=== PATIENT | male | born 1940 | race Caucasian/White ===

== ENCOUNTER → 2024-07-11 10:08 | Outpatient (REF) | payer MEDICARE, SELFPAY ==
[2024-07-11 12:37] LABS: % Basophils 0.9 % (0-2); % Eosinophils 3.6 % (0-6); % Immature Granulocytes 0.4 % (0-0.5); % Lymphocytes 18.8 % (20.5-51.1); % Monocytes 10.3 % (1.7-9.3); Absolute Basophils 0.1 10^3/uL (0-0.2); Absolute Eosinophils 0.2 10^3/uL (0-0.7); Absolute Lymphocytes 1.1 10^3/uL (1.2-3.4); Absolute Monocytes 0.6 10^3/uL (0.1-0.6); Absolute Neutrophils 3.7 10^3/uL (1.4-6.5); Hematocrit 38.4 % (39.0-52.0); Hemoglobin 12.5 g/dL (13.0-18.0); Mean Corp Hgb Conc. 32.6 g/dL (33.0-37.0); Mean Corpuscular Hgb 30.5 pg (27.0-31.0); Mean Corpuscular Volume 93.7 fL (80.0-94.0); Mean Platelet Volume 10.6 fL (7.4-10.4); Nucleated Red Blood Cells % 0 % (-); Platelet Count 223 10^3/uL (130-400); Red Cell Dist. Width 13.5 % (11.5-14.5); White Blood Cell Count 5.6 10^3/uL (4.8-10.8)
[2024-07-11 13:28] LABS: ALT (SGPT) 20 U/L (0-50); AST (SGOT) 28 U/L (17-59); Albumin 3.9 g/dl (3.5-5.0); Alkaline Phosphatase 81 U/L (38-126); Blood Urea Nitrogen 24 mg/dl (9-20); Carbon Dioxide 29 mmol/L (22-30); Chloride 100 mmol/L (98-107); Glucose 95 mg/dl (70-99); HDL Cholesterol 53 mg/dl; LDL Cholesterol, Calculated 65 mg/dl; Potassium 4.6 mmol/L (3.5-5.1); Sodium 138 mmol/L (135-145); Total Bilirubin 0.8 mg/dl (0.2-1.3); Total Cholesterol 136 mg/dl (50-199); Total Protein 6.6 g/dl (6.3-8.2); Triglyceride 94 mg/dl (10-149); Very Low Density Lipoprotein 18 mg/dl (0-30); eGFR > 60.00
[2024-07-11 13:36] LABS: Free T4 1.08 ng/dl (0.78-2.19)
[2024-07-11 13:50] LABS: TSH 2.85 uIU/ml (0.47-4.68)
== END ==
LOC: OLABPV 10:08
PROVIDERS: ATTENDING PHYSICIAN Family Medicine
DX: E78.2 Mixed hyperlipidemia (principal); E03.9 Hypothyroidism, unspecified; D64.9 Anemia, unspecified
CPT/HCPCS: 36415; 80053; 80061; 84439; 84443; 85025

== ENCOUNTER → 2024-08-15 10:02 | Outpatient (REF) | payer MEDICARE, SELFPAY | LOC: RCS 10:02 | PROVIDERS: ATTENDING PHYSICIAN Student in an Organized Health Care Education/Training Program; FAMILY PHYSICIAN Family Medicine | DX: I71.21 Aneurysm of the ascending aorta, without rupture (principal); I25.10 Atherosclerotic heart disease of native coronary artery without angina pectoris | CPT/HCPCS: 93306 ==

== ENCOUNTER → 2025-01-12 09:51 | Outpatient (REF) | payer MEDICARE, SELFPAY ==
[2025-01-12 10:41] LABS: Hematocrit 36.2 % (39.0-52.0); Hemoglobin 11.8 g/dL (13.0-18.0); Mean Corp Hgb Conc. 32.6 g/dL (33.0-37.0); Mean Corpuscular Volume 92.1 fL (80.0-94.0); Nucleated Red Blood Cells % 0 % (-); Platelet Count 224 10^3/uL (130-400); Red Cell Dist. Width 13.2 % (11.5-14.5)
[2025-01-12 10:48] LABS: ALT (SGPT) 17 U/L (0-50); AST (SGOT) 23 U/L (17-59); Albumin 3.7 g/dl (3.5-5.0); Alkaline Phosphatase 72 U/L (38-126); Blood Urea Nitrogen 21 mg/dl (9-20); Calcium 9.4 mg/dl (8.4-10.2); Carbon Dioxide 27 mmol/L (22-30); Chloride 108 mmol/L (98-107); Glucose 87 mg/dl (70-99); HDL Cholesterol 48 mg/dl; LDL Cholesterol, Calculated 58 mg/dl; Potassium 4.9 mmol/L (3.5-5.1); Sodium 138 mmol/L (135-145); Total Protein 6.4 g/dl (6.3-8.2); Very Low Density Lipoprotein 16 mg/dl (0-30); eGFR > 60.00
[2025-01-12 11:16] LABS: TSH 2.89 uIU/ml (0.47-4.68)
== END ==
LOC: OLABPV 09:51
PROVIDERS: ATTENDING PHYSICIAN Family Medicine
DX: E78.2 Mixed hyperlipidemia (principal); E03.9 Hypothyroidism, unspecified; D64.9 Anemia, unspecified
CPT/HCPCS: 36415; 80053; 80061; 84439; 84443; 85025

== ENCOUNTER → 2025-02-13 12:10 | Outpatient (REF) | payer MEDICARE, SELFPAY ==
[2025-02-13 13:03] LABS: PSA, Total - Diagnostic < 0.06 ng/ml (0.0-4.0)
== END ==
LOC: OLABPV 12:10
PROVIDERS: ATTENDING PHYSICIAN Specialist
DX: C61 Malignant neoplasm of prostate (principal)
CPT/HCPCS: 36415; 84153

== ENCOUNTER 2025-05-30 06:35 | Outpatient (RCR) | payer MEDICARE, SELFPAY | END 2025-05-30 23:59 | disposition home or self-care (01) | LOC: RPT 06:35 | PROVIDERS: ATTENDING PHYSICIAN Family Medicine | DX: R42 Dizziness and giddiness (principal); R26.81 Unsteadiness on feet; Z73.6 Limitation of activities due to disability; G62.9 Polyneuropathy, unspecified | CPT/HCPCS: 97110; 97162 ==

== ENCOUNTER 2025-06-05 14:48 | Inpatient (IN) | payer MEDICARE, SELFPAY ==
[2025-06-05 12:04] VITALS: BP 123/78
[2025-06-05 12:57] LABS: COVID-19 Antigen Negative (Negative)
[2025-06-05 12:58] LABS: ALT (SGPT) 21 U/L (0-50); AST (SGOT) 34 U/L (17-59); Albumin 3.7 g/dl (3.5-5.0); Alkaline Phosphatase 98 U/L (38-126); Blood Urea Nitrogen 16 mg/dl (9-20); Calcium 8.6 mg/dl (8.4-10.2); Carbon Dioxide 24 mmol/L (22-30); Chloride 96 mmol/L (98-107); Glucose 103 mg/dl (70-99); Potassium 4.5 mmol/L (3.5-5.1); Sodium 126 mmol/L (135-145); Total Protein 6.5 g/dl (6.3-8.2); eGFR > 60.00
[2025-06-05 13:08] VITALS: BMI 28.7
[2025-06-05] MEDS: TYLENOL 650 MG PO (13:13)
--- NOTE | 2025-06-05 13:47 | ED.GENMED ---
History of Present Illness
General
Chief Complaint: Cold/Flu/URI Symptoms
Source: patient
Exam Limitations: none
Time Seen by Provider: 06/05/25 12:56
Nursing documentation reviewed up to this point in time: agreed with
History of Present Illness
History of Present Illness:
Patient presents to ED secondary to persistent cough, shortness of breath, decreased appetite and generalized weakness over the past 1 week. Patient's spouse currently has similar symptoms and tested positive for COVID-19, 2 days ago. Patient
reports fever of 101 at home this morning. Patient did not take any Tylenol or Motrin prior to arrival. Denies chest pain. Denies nausea, vomiting, or diarrhea. Denies rash. Denies headache. Denies dizziness. Denies recent travel. Denies
recent change in medications or diet. Patient does report having received the flu vaccination this year.
Past History
Past History
ED Past Medical History: CAD, Cancer (Prostate), HTN, Hypercholesterolemia, AL and Hypothyroidism
ED Past Surgical History: Appendectomy, Cardiac (History of cardiac catheterization with multiple stents X 8, CABG), Orthopedic (Wrist surgery) and Other (History of hernia surgery, and cataract surgery in 2003)
Social History
Tobacco: Former smoker
Alcohol: Occasional
Personal:
Living: with family
Employment: Retired
Review of Systems
Review of Systems
Allergies reviewed?: Yes
All Other Systems: ROS reviewed and negative except as documented in HPI and ROS
Constitutional: Reports chills
EENT: Reports no symptoms
Respiratory: Reports cough and trouble breathing
Cardiac: Reports no symptoms; Denies chest pain
ABD/GI: Reports no symptoms; Denies vomiting or diarrhea
Musculoskeletal: Reports no symptoms
Skin: Reports no symptoms; Denies rash
Neurological: Reports weakness
Phy Exam
Physical Exam
Physical Exam:
Physical Exam
General: mild distress, not acutely ill. afebrile
Head: nc/at. eomi
Neck: supple. normal range of motion.
Heart: s1/s2 regular rate and rhythm
Lungs: mild respiratory distress. crackles bilaterally
Abdomen: normal bowel sounds. not tender.
Neuro: alert and oriented x 3. no focal neurological deficits
Skin: no rash
Psychiatric: well kept. interactive and cooperative
Extremities: no edema. no calf tenderness.
Course
Orders/Labs/Results
Orders:
Orders
06/05/25 Breakfast
Regular
At Your Request: Full Participation
06/05/25 12:19
COVID-19 Antigen Urgent
Source: Nasal Swab
Comprehensive Metabolic Panel Urgent
Serum Osmolality Urgent
Comment: ADD ON
06/05/25 12:58
CR Chest - 2 Views Urgent
Comment:
Reason For Exam: cough/weakness
06/05/25 13:03
Legionella Urinary Antigen Urgent
ABDOUL Source: Urine
Specimen Description:
06/05/25 13:04
Add On- LAB Urgent
Tests Added?: serum osm
06/05/25 13:05
0.9% Sodium Chloride 500 ml [Nss] 500 ml IV BOLUS
Acetaminophen [Tylenol] 650 mg PO NOW STA
06/05/25 13:15
Lactate Level [Lactic Acid] Urgent
06/05/25 13:16
Complete Blood Count/With Diff Urgent
Blood Culture Q30M
ABDOUL Source: Blood/Venous
Specimen Description:
Blood Culture Q30M
ABDOUL Source: Blood/Venous
Specimen Description:
Influenza A+B Rapid Molecular Urgent
ABDOUL Source: Nasal Swab
Specimen Description:
Respiratory Syncytial Virus Urgent
ABDOUL Source: Nasal Swab
Specimen Description:
Date Specimen was Collected: 06/05/25
Time Specimen was Collected: 13:06
06/05/25 14:18
Admit/Transfer Patient As Directed
Co-Sign Provider:
Level of Care: Inpatient admission
Assign to:: Medical/Surgical
Physician / Group: loida holland
Diagnosis: hyponatremia
Reason for Hospitalization: hyponatermia
Expected length of stay greater than two midnights?: Yes
ELOS- Estimated Length of Stay in days: 3
I certify the patient meets the requirements for IP care: Yes
PRN Pain Medication Management As Directed
May give lesser potent ordered pain med per pt: Yes
preference::
Protocol:: Medication orders for pain may be administered in a
manner that supports deferring to patient preference
when the pt is:
- Requesting an ordered lesser potent pain medication.
Least to most potent pain medications are defined
as: acetaminophen < NSAID < tramadol < opioids
(morphine, oxycodone, hydromorphone).
- Requesting a lesser dose of the same medication IF
ORDERED.
- Requesting a less intrusive route of administration
if both routes are prescribed by the provider (PO <
IV).
06/05/25 14:19
Code Status As Directed
Resuscitation Status: Full Code
06/05/25 16:28
Acetaminophen [Tylenol] 650 mg PO Q4HPRN PRN
Bisacodyl [Dulcolax] 10 mg RECTAL [id number] PRN
Docusate W/Senna [Senokot-S] 1 tablet PO BIDPRN PRN
Ipratropium/Albuterol Sulfate [Duoneb] 3 ml INH R Q4HPRN PRN
Polyethylene Glycol Powder [Miralax] 17 grams PO DAILYPRN PRN
06/05/25 16:28
Sputum Culture [Respiratory Culture/Gram Stain] Routine
ABDOUL Source: Sputum
Specimen Description:
Activity As Directed
Activity Level: As Tolerated
Vital Signs As Directed
Frequency: Per unit guidelines
Ot Eval And Treat Routine
Pt Eval And Treat Routine
Activity Level: As Tolerated
DX Deep Vein Thrombosis Video Routine
06/05/25 17:47
BMP [Basic Metabolic Panel] Stat
06/05/25 18:00
Atorvastatin [Lipitor] 40 mg PO QPM
Enoxaparin Sodium [Lovenox] 40 mg SC QPM
06/05/25 20:00
Guaifenesin [Mucinex] 600 mg PO Q12
06/06/25 06:00
Basic Metabolic Panel IN AM
Complete Blood Count/No Diff IN AM
Levothyroxine [Synthroid] 50 mcg PO DAILY @ 0600
06/06/25 08:00
Aspirin Low Dose EC [Aspir Low (Enteric Coated)] 81 mg PO DAILY
Abnormal Lab Results
06/05/25 06/05/25
12:19 13:16
RBC 4.54 L 10^6/uL
(4.70-6.10)
Abs Immat Gran (auto) 0.1 H 10^3/uL
(0-0.05)
Absolute Neuts (auto) 9.1 H 10^3/uL
(1.4-6.5)
Absolute Lymphs (auto) 0.7 L 10^3/uL
(1.2-3.4)
Absolute Monos (auto) 0.8 H 10^3/uL
(0.1-0.6)
Immature Gran % 0.7 H %
(0-0.5)
Neutrophils % 85.1 H %
(42.2-75.2)
Lymphocytes % 6.3 L %
(20.5-51.1)
Sodium 126 L mmol/L
(135-145)
Chloride 96 L mmol/L
(98-107)
Glucose 103 H mg/dl
(70-99)
Serum Osmolality 273 L mOsm/kg
(275-300)
06/05/25 13:16
06/05/25 12:19
Vital Signs
Initial and Last Documented VS:
Initial Vital Signs
Temp Pulse Resp BP Pulse Ox
99.5 F 89 22 123/78 95
06/05/25 12:04 06/05/25 12:04 06/05/25 12:04 06/05/25 12:04 06/05/25 12:04
Last Documented Vital Signs
Temp Pulse Resp BP Pulse Ox
97.9 F 90 20 115/67 92
06/05/25 16:52 06/05/25 16:52 06/05/25 16:52 06/05/25 16:52 06/05/25 16:52
MDM/Problems Addressed
MDM/Problems Addressed:
History, exam, and blood work, along with chest x-ray consistent with likely viral illness with resulting hyponatremia from dehydration. Despite negative COVID-19 test in ED, it is quite possible that patient does not fact have COVID-19 infection,
explain his symptoms, especially in light of his spouse having tested +2 days ago. Patient will be admitted for further eval and treatment, including IV hydration.
Blood culture pending. Legionella antigen pending, as ordered secondary to hyponatremia.
Influnenza positive
*Pulse Oximetry
SaO2: 95
Oxygen Mode of Delivery: Room air
Patient hypoxic: no
*Critical Care Note
Total Time (30-74mins, 75-104mins- exclusive of procedures): Not Applicable
ED Attending Note
-
Portions of this chart may have been created with voice recognition software.� Occasional wrong word or��sound alike� substitutions may have occurred due to the inherent limitations of voice recognition software.
Discharge Plan
Departure
Patient Disposition: Admit
Date of Disposition: 06/05/25
Time of Disposition: 13:56
Admit to: Telemetry
Presentation/result/management discussed w/ accepting MD/DO: Hospitalist
Discharge Problem:
URI (upper respiratory infection), Acute hyponatremia, Weakness
Interventions
Interventions:
*Risk Screen - Suicide Last Done: 06/05/25 17:08
*General Assessment Last Done: 06/05/25 13:08
*Neglect/Abuse Screening Last Done: 06/05/25 13:08
*ED COVID-19 Vaccine History Last Done: 06/05/25 17:08
*ED Influenza Vaccine History Last Done: 06/05/25 13:08
[facility] Fall Risk Assessment Tool Last Done: 06/05/25 13:08
*Nursing Disposition Last Done: 06/05/25 16:34
ED- Cardiac Assessment Last Done: 06/05/25 13:08
ED- Neurological Assessment Last Done: 06/05/25 13:08
ED- Pulmonary Assessment Last Done: 06/05/25 13:08
Discharge Date and Time
Discharge Date/Time: 06/05/25 16:34
[2025-06-05 13:49] LABS: Hematocrit 39.1 % (39.0-52.0); Hemoglobin 13.2 g/dL (13.0-18.0); Mean Corp Hgb Conc. 33.8 g/dL (33.0-37.0); Mean Corpuscular Volume 86.1 fL (80.0-94.0); Nucleated Red Blood Cells % 0 % (-); Platelet Count 186 10^3/uL (130-400); Red Cell Dist. Width 13.7 % (11.5-14.5)
--- NOTE | 2025-06-05 13:58 | HPS.HSE ---
Family Physician
-
Family Physician:
Chief Complaint
-
Cough, short of breath, decreased appetite
History of Present Illness
84-year-old with past medical history for coronary artery disease, prostate cancer, hypertension, hypercholesteremia, [place], hypothyroidism presented to us with persistent cough, shortness of breath, decreased appetite and generalized weakness over the
past 1 week. patient stated cough with whitish sputum. he took cough medicine at home with no relief in symptoms. Patient denies any headache, dizzy or syncope. Patient stated he had a fever of 101 at home. Denies chest pain.denied abdominal
pain, nausea, vomiting or diarrhea. Patient denied dysuria hematuria.
patient's spouse currently has similar symptoms and tested positive for COVID-19, 2 days ago.
Upon arrival he was noted to have a sodium 126. Patient received a dose of Tylenol, normal saline in the ER. Urine osmolality, UA, urine sodium sent from ER Influenza, Legionella urine, RSV, blood culture sent from ER. Admitting for further
management
Medical History
Past Medical History
Past Medical History: Reports Other
Additional Past Medical History:
Bundle branch block, [place], hypothyroidism, prostate cancer, hyperlipidemia, bradycardia, neuropathy, hypertension, anemia, coronary artery disease, radiation cystitis, radiation proctitis
Past Surgical History: Reports Other
Additional Past Surgical History:
Coronary artery bypass graft x 3 vessels
Social History
Tobacco: Former Smoker
Alcohol: Occasional
Personal:
Living: With Family
Family History
Family History: Not pertinent
Allergies / Home Medications
Allergies reflects when Allergies were last updated in [employer].
Home Medications with original date entered in [employer]
Allergy/Medication List:
Allergies
Allergy/AdvReac Type Severity Reaction Status Date / Time
amoxicillin Allergy rash, Verified 06/20/21 10:49
blotchy
skin
oxycodone HCl (From Percocet) Allergy bad dreams Verified 06/20/21 10:49
Home Medications
aspirin 81 mg tablet,delayed release 81 mg PO DAILY 07/10/14
atorvastatin 40 mg tablet 40 mg PO QPM 07/10/14
levothyroxine 50 mcg tablet 50 mcg PO DAILY 07/10/14
ascorbic acid (vitamin C) 500 mg tablet (Vitamin C) 500 mg PO DAILY 12/19/19
cholecalciferol (vitamin D3) 25 mcg (1,000 unit) tablet 1,000 units PO DAILY 12/19/19
cyanocobalamin (vitamin B-12) 100 mcg tablet 100 mcg PO DAILY 12/19/19
Review of Systems
-
Constitutional: Reports Fever and Fatigue
EENT: Reports No Symptoms
Respiratory: Reports Cough and Trouble Breathing
Cardiac: Reports No Symptoms
Abdomen/GI: Reports No Symptoms
: Reports No Symptoms
Musculoskeletal: Reports No Symptoms
Skin: Reports No Symptoms
Neurological: Reports Weakness
Endocrine: Reports No Symptoms
Hematologic/Lymphatic: Reports No Symptoms
Psych: Reports No Symptoms
Physical Exam
Vital Signs
Vital Signs
Temp Pulse Resp BP Pulse Ox
99.5 F 89 22 123/78 95
06/05/25 12:04 06/05/25 12:04 06/05/25 12:04 06/05/25 12:04 06/05/25 13:54
Physical Exam
General: Well Developed, Well Nourished and No Apparent Distress
HEENT: NormoCephalic, Moist mucous membranes and Atraumatic
Respiratory: Clear
Cardiac: S1/S2 and Regular Rhythm; No Murmur or Rub
GI: Soft, Non Tender, Non Distended and Normal Bowel Sounds; No Organomegaly
Rectal: Deferred by Provider
Musculoskeletal: No Clubbing, No Cyanosis and No Edema
Skin: No Rash
Neuro: AO x 3 and Nonfocal/grossly intact
Psych: Calm
Laboratory Results
-
06/05/25 13:16
06/05/25 12:19
Laboratory Results
Lactic Acid 1.6 mmol/L (0.7-2.0) 06/05/25 13:15
Total Bilirubin 0.5 mg/dl (0.2-1.3) 06/05/25 12:19
AST 34 U/L (17-59) 06/05/25 12:19
ALT 21 U/L (0-50) 06/05/25 12:19
Alkaline Phosphatase 98 U/L (38-126) 06/05/25 12:19
Data Reviewed
-
Lab Data: Labs Reviewed by me
Impression/Plan
-
# Hyponatremia secondary to dehydration
- Fluids in ER
- Continue to monitor BMP
- Urine osmolality, urine sodium, UA pending
#Cough, short of breath secondary to influenza A
- COVID-negative
- Influenza and RSV pending
- Blood culture sent from ER
- Mucinex, nebs, Tylenol continued as needed
-initiated on TamiFlu
# Chronic bradycardia with a bundle-branch block
#CAD: No chest pain
- Aspirin continued
# Hyperlipidemia
- Atorvastatin continued
# Hypothyroidism
- Levothyroxine continue
# DVT prophylaxis
- Lovenox
# CODE STATUS
- Full code
[2025-06-05] MEDS: NSS 500 IV ×2 (14:03→20:11)
[2025-06-05 14:04] VITALS: BP 117/65
--- NOTE | 2025-06-05 14:18 | W.PN.UPDATE ---
Update Note
Progress Note Update
This note serves as an addendum to the H&P by private eye Kellydel Villarreal
HPI
84M Former smoker
PMHX: CAD, Cancer (Prostate), HTN, Hypercholesterolemia, NC and Hypothyroidism, HX CC/LHC with multiple stents X 8, CABG)
Seen at ED
- persistent cough, shortness of breath, decreased appetite and generalized weakness over the past 1 week.
- spouse currently has similar symptoms and tested positive for COVID-19, 2 days ago.
- fever of 101 at home this morning - did not take any Tylenol or Motrin prior to arrival.
Patient does report having received the flu vaccination this year.
Na 126 at ER s/p 1 L NS at ER
ROS:
- Denies chest pain.
- Denies nausea, vomiting, or diarrhea.
- Denies headache.
- Denies dizziness.
- Denies recent travel.
Relevant VS
Temp Pulse Resp BP Pulse Ox
99.5 F 77 16 117/65 93
06/05/25 12:04 06/05/25 14:04 06/05/25 14:04 06/05/25 14:04 06/05/25 14:04
PE
Gen: Not toxic , NAD, conversant , appropriate
HEENT: flushed cheeks
Neck: supple
Lungs: symmelic AE , clear
Cor: RRR S1 S2
Abdomen:�soft, NT, NG, NRT
CABLE SPLICER ASSISTANT: AAO3, NFND
MS: no edema
Psych: Nl mood and affect
Relevant Data
Laboratory Tests
06/05/25 06/05/25 06/05/25
12:19 13:15 13:16
WBC 10.7
Hgb 13.2
Plt Count 186
Sodium 126 L
Chloride 96 L
Carbon Dioxide 24
Creatinine 1.0
eGFR > 60.00
Glucose 103 H
Serum Osmolality 273 L
Lactic Acid 1.6
06/05/25
12:19
SARS-CoV-2 Antigen Negative
Pending CXR final report
ASSESSMENT & PLAN
Acute Hyponatremia secondary to dehydration
- asymptomatic
- 1 L NS ER
- Repeat Na at 6 pm
- Continue to monitor BMP
- Pending Urine osmolality, urine sodium, UA pending
Cough, short of breath concern for viral
- COVID-negative
- Influenza and RSV pending
- Blood culture sent from ER
- Mucinex, nebs, Tylenol continued as needed
Known chr HX
Chronic bradycardia with a bundle-branch block
CAD: No chest pain: - Aspirin continued
Hyperlipidemia- Atorvastatin continued
Hypothyroidism - Levothyroxine continue
DVT Px: LMWH
Code: Full
IP MS
[2025-06-05 15:00] VITALS: BP 94/55
[2025-06-05 16:00] VITALS: BP 107/52
[2025-06-05 16:52] VITALS: BP 115/67; BMI 26.9
--- NOTE | 2025-06-05 17:16 | PTCARENOTE ---
P transferred to 4W. PT able to walk woth assistance from stretcher to bed, AAOx3. No c/o pain. Pt oriented to room safety measures in place call carpenter within reach.
[2025-06-05] MEDS: LIPITOR 40 MG PO (17:57)
[2025-06-05] MEDS: LOVENOX 40 MG SC (17:58)
[2025-06-05 18:08] LABS: Blood Urea Nitrogen 18 mg/dl (9-20); Calcium 8.1 mg/dl (8.4-10.2); Carbon Dioxide 22 mmol/L (22-30); Chloride 99 mmol/L (98-107); Estimated Creatinine Clearance 61 ml/min; Glucose 96 mg/dl (70-99); Potassium 4.7 mmol/L (3.5-5.1); Sodium 127 mmol/L (135-145); eGFR > 60.00
[2025-06-05] MEDS: TAMIFLU 30 MG PO (20:11)
[2025-06-05] MEDS: MUCINEX 600 MG PO (20:13)
[2025-06-05 21:14] LABS: Urine Character Clear (Clear)
[2025-06-05 21:26] LABS: Urine White Cell 0-2 /HPF (0-5)
[2025-06-05 22:25] VITALS: BP 127/71
[2025-06-06] MEDS: TYLENOL 650 MG PO (00:36)
--- NOTE | 2025-06-06 02:00 | PTCARENOTE ---
Repeat BMP completed around 6pm. Na increased from 126 to 127. DISPOSAL WORKER made aware via TT. 500ml NSS ordered. Labs ordered in AM.
Urine and sputum samples sent. Patient w/ moist productive cough; bringing up thick white/conklin sputum. Denies feeling SOB. Pulse ox 94-95% on RA.
Temp at 0030 was 101.6. PRN Tylenol given. Temp at 0200 was 98.8.
--- NOTE | 2025-06-06 04:38 | W.PN.UPDATE ---
Update Note
Progress Note Update
Na 127 results discussed with Hospitalist. Advised to start NSS. will order labs in AM
[2025-06-06] MEDS: SYNTHROID 50 MCG PO (05:44)
[2025-06-06 07:05] VITALS: BP 143/79
--- NOTE | 2025-06-06 07:16 | W.PN.HOSP.TC ---
Addendum entered and electronically signed by Fracisco Campa DO 06/07/25 13:23:
CDI: Acute influenza with acute viral bronchitis
Original Note:
Today's Communication/Plan
-
Continue Tamiflu for 4 more days twice daily to complete course
Follow-up with PCP within a week of discharge
Assessment / Plan
Assessment / Plan
84-year-old with past medical history for coronary artery disease, prostate cancer, hypertension, hypercholesteremia, [place], hypothyroidism presented to us with persistent cough, shortness of breath, decreased appetite and generalized weakness over the
past 1 week presented with flu positive.
# Weakness secondary to influenza:
Vitals: BP 143/79, AR 71, temp 101.6-- 98.2
WBC within normal limit, hemoglobin 13.2--11.7 within baseline
Sodium 126--127--132, potassium 4.5--4.7-4, calcium 8 low
Legionella negative
He has received IV fluids and his sodium improved around 132 at the time of discharge
Continue Tamiflu for 4 more days to complete the course as twice daily
Chest x-ray 06/05:
The heart size and pulmonary vasculature is normal. There is an ectatic aorta. There is no focal consolidation or pleural effusion. There is hyperaeration with flattening of the diaphragms.
There are mediastinal surgical clips. Sternal wires are noted. There are degenerative changes in the thoracic spine with mild osteophyte formation. There are also degenerative changes involving both shoulders.
Home PT recommended at PT evaluation
DVT Lovenox
Code full
Regular diet
Anticipated Discharge: Today
Subjective/Interval History
-
Date of Service: June 06, 2025
Overnight patient had severe weakness, common cold, positive for influenza.
Objective Data
-
Labs:
Laboratory Results
06/06/25
06:00
WBC Pending
Hgb Pending
Hct Pending
Plt Count Pending
Sodium Pending
Potassium Pending
Chloride Pending
Carbon Dioxide Pending
BUN Pending
Creatinine Pending
Glucose Pending
Calcium Pending
Vital Signs:
Vital Signs
Temp Pulse Resp BP Pulse Ox
99.1 F 73 18 127/71 98
06/06/25 05:43 06/05/25 22:25 06/05/25 22:25 06/05/25 22:25 06/06/25 05:43
I&O
06/05/25 06/06/25 06/07/25
06:59 06:59 06:59
Intake Total 1180 / 1180
Output Total 1070 / 1070
Balance 110 / 110
Review of Systems
-
History Source: Patient
All other systems: Reviewed and negative
Physical Exam
-
General: Well Developed
Respiratory: Crackles
Cardiac: Regular Rhythm
GI: Soft, Nontender and Nondistended
Genito-urinary: No Costovertebral Tender
Musculoskeletal: No Clubbing, No Cyanosis and No Edema
Skin: Warm
Neuro: AO x 3
Hematologic / Lymphatic: No Lymphadenopathy
[2025-06-06] MEDS: MUCINEX 600 MG PO (07:52)
[2025-06-06] MEDS: TAMIFLU 30 MG PO (07:52)
[2025-06-06] MEDS: ASPIR LOW (ENTERIC COATED) 81 MG PO (07:52)
[2025-06-06 08:51] LABS: Hematocrit 35.0 % (39.0-52.0); Hemoglobin 11.7 g/dL (13.0-18.0); Mean Corp Hgb Conc. 33.4 g/dL (33.0-37.0); Mean Corpuscular Volume 87.9 fL (80.0-94.0); Platelet Count 162 10^3/uL (130-400); Red Cell Dist. Width 13.8 % (11.5-14.5)
[2025-06-06 09:28] LABS: Blood Urea Nitrogen 16 mg/dl (9-20); Calcium 8.0 mg/dl (8.4-10.2); Carbon Dioxide 22 mmol/L (22-30); Chloride 103 mmol/L (98-107); Estimated Creatinine Clearance 69 ml/min; Glucose 87 mg/dl (70-99); Potassium 4.0 mmol/L (3.5-5.1); Sodium 132 mmol/L (135-145); eGFR > 60.00
--- NOTE | 2025-06-06 12:09 | CM ---
CM met with patient at bedside. Patient was admitted with influenza A, hyponatremia. He resides in an Independent Living apartment at [facility]. He lives with his who is currently ill at home with COVID. It is a 2story apt. Prior to
hospitalization he was independent with ambulation and ADLs at home.
PT eval was completed this am. Home PT is recommended. Patient is agreeable to Home Health services. He is through [facility].
He has requested assistance with transport home at time of d/c through [employer].
CM contacted Special Care Dept at [facility] ([phone]) and confirmed that [facility] can provide transportation home. It must be during the hours of 830am- 5pm, and patient can't require isolation precautions. To request ride call [employer]
Transport at [phone].
PCP:Dr. Skyler Osman
Pharmacy: [facility]
Plan: home with [facility], transport home provided by [employer].(call [phone] for ride)
--- NOTE | 2025-06-06 14:27 | VNURNOTE ---
Home Health Liaison spoke with patient at bedside to discuss [facility] nurse/therapy, visits, schedule and homebound status. Patient is agreeable and understands that visits at home will be 2-3 x per week to assess and teach medical management.
Patient is aware that [facility] will contact them for start of care within a week after discharge from .
[facility] referral completed in [facility].
--- NOTE | 2025-06-06 15:27 | CM ---
Patient is being discharged home today. he is returning home with his to Independent Living apt at [facility]. He is setup with [facility]. He is unable to use [facility] home due to isolation needs. he is agreeable to taking
wheelchair van. CM discussed cost f wheelchair an with patient and his . He has a 4pm pick up driver- patient and his are aware.
Plan; home with , [facility], Acute care wheelchair van to transport home.
[2025-06-06 15:33] VITALS: BP 136/78
--- NOTE | 2025-06-06 16:13 | PN.CDI ---
CDI
- -
CDI:
Physician Documentation Request
Admit Date: 06/05/25 14:48
Dear Doctor,
Please review the following and provide your response in the progress notes.
Clinical Indicators:
Pt admitted for Weakness secondary to influenza.
06/06 PN: ' Influenza A with viral bronchitis.'
Clarify which of the following accurately represents the acuity of the Bronchitis. Possible options might include:
____ Acute
Chronic stable condition
____ Other
Use of terms such as suspected, likely, concern for, or probable (associated with a specific diagnosis that is being evaluated, monitored, or treated as if it exists) are acceptable and can be coded in the inpatient setting, when documented at the
time of discharge.
Thank you,
Lela Maharaj RN, BSN
CDI Specialist
[place] [facility]
Please use your independent medical judgment in providing your response.
--- NOTE | 2025-06-07 17:54 | W.DCSUMMARY ---
Documented by User: Fan Espinoza MD, Resident 06/07/25 18:12
Discharge Summary
Discharge Data
Date of Admission: 06/05/25
Date of Discharge: 06/06/25
Total time spent discharging patient (in min): 45 minutes
-
Pending Results: No
Hospital Course
Discharging Physician : Dr Fracisco Campa MD
Dr Fan Espinoza MD
Disposition : SNF, [facility]
Primary care physician : Dr Skyler Osman MD
Principal Discharge diagnosis :
Hyponatremia secondary to dehydration,
Cough, shortness of breath secondary to influenza
Chronic Discharge diagnosis :
Shortness of breath secondary to influenza
Hospital Course :
On 06/05 84-year-old male with past medical history for coronary artery disease, prostate cancer, hypertension, hypercholesterolemia, myocardial infarction hypothyroidism presented to ED with persistent cough, shortness of breath, decreased
appetite, generalized weakness. Patient was stated cough with whitish sputum and admitted his spouse recently was diagnosed with COVID-19. Upon arrival his sodium was 126 and received a dose of Tylenol, normal saline in the ER. And follow-up test
includes Legionella urine, RSV, blood culture, influenza. After 1 L of normal saline at ER his repeat sodium improved. He was diagnosed with influenza A with viral bronchitis and prescribed on oseltamavir 30 mg twice a day with a planned 5-day
course. He felt weakness secondary to viral infection, evaluated by PT who recommended home care. At the time of admission he had regular diet with Lovenox DVT prophylaxis, full code. Recommended for 5 more days of isolation.
IMPORTANT:
If your symptoms worsen when you get home, go to the Emergency Room if you cannot reach a doctor, or call 911
Legionella urinary antigen final test negative, respiratory culture prelim sputum reports normal surjit, RSV negative, influenza A+
Important imaging findings :
Chest x-ray 06/05:
The heart size and pulmonary vasculature is normal. There is an ectatic aorta. There is no focal consolidation or pleural effusion. There is hyperaeration with flattening of the diaphragms.
There are mediastinal surgical clips. Sternal wires are noted. There are degenerative changes in the thoracic spine with mild osteophyte formation. There are also degenerative changes involving both shoulders.
Procedure findings : None
Discharge Plan
-
Patient Disposition: Detention/SNF
Discharge Diagnosis/Procedures: Coronary artery disease, prostate cancer, hypertension, hypercholesteremia, myocardial infarction, hypothyroidism, while at the admission diagnosed with influenza
Condition: Fair
Diet: No restrictions
Activity: No restrictions
Driving Restrictions: As prior to admission
Bathing Restrictions: None
Instructions: Viral Syndrome (DC)
Referrals:
Skyler Osman MD [Family Provider, [facility]]
Additional Discharge Medication Instructions: - Keep Isolation for 5 more days for the diagnosis of influenza
-Follow-up with PCP within a week of discharge for BMP
- Continue oseltamavir 75 mg for 4 more days to complete the course.
- Return to ER if the symptoms gets worse.
Prescriptions:
New
oseltamivir 75 mg Capsule
75 mg PO BID Qty: 8 0RF
acetaminophen 325 mg Tablet
650 mg PO Q4HPRN PRN (Reason: mild pain/MCLEAN/temp> 100.4F) Qty: 30 0RF
Continued
atorvastatin 40 MG tablet
40 mg PO QPM
aspirin 81 MG tablet,delayed release (DR/EC)
81 mg PO DAILY
ascorbic acid (vitamin C) [Vitamin C] 500 MG tablet
500 mg PO DAILY
cyanocobalamin (vitamin B-12) 100 MCG tablet
100 mcg PO DAILY Qty: 0 0RF
levothyroxine 50 MCG tablet
50 mcg PO DAILY Qty: 0 0RF
Changed
cholecalciferol (vitamin D3) 1,000 UNITS tablet
1,000 unit PO DAILY Qty: 0 0RF
Discharge Orders:
Discharge Patient (As Directed); Ordered 06/06/25
Ordered By: Fan Espinoza
Discharge Date and Time
Discharge Date/Time: 06/06/25 16:14
Print Language: SPANISH

Documented by User: Fracisco Campa DO 06/08/25 07:57
Discharge Summary
Discharge Data
Date of Admission: 06/05/25
Date of Discharge: 06/05/25
Total time spent discharging patient (in min): 45
Discharge Plan
-
Patient Disposition: Detention/SNF
Discharge Diagnosis/Procedures: Coronary artery disease, prostate cancer, hypertension, hypercholesteremia, myocardial infarction, hypothyroidism, while at the admission diagnosed with influenza
Condition: Fair
Diet: No restrictions
Activity: No restrictions
Driving Restrictions: As prior to admission
Bathing Restrictions: None
Instructions: Viral Syndrome (DC)
Referrals:
Skyler Osman MD [Family Provider, [facility]]
Additional Discharge Medication Instructions: - Keep Isolation for 5 more days for the diagnosis of influenza
-Follow-up with PCP within a week of discharge for BMP
- Continue oseltamavir 75 mg for 4 more days to complete the course.
- Return to ER if the symptoms gets worse.
Prescriptions:
New
oseltamivir 75 mg Capsule
75 mg PO BID Qty: 8 0RF
acetaminophen 325 mg Tablet
650 mg PO Q4HPRN PRN (Reason: mild pain/MCLEAN/temp> 100.4F) Qty: 30 0RF
Continued
atorvastatin 40 MG tablet
40 mg PO QPM
aspirin 81 MG tablet,delayed release (DR/EC)
81 mg PO DAILY
ascorbic acid (vitamin C) [Vitamin C] 500 MG tablet
500 mg PO DAILY
cyanocobalamin (vitamin B-12) 100 MCG tablet
100 mcg PO DAILY Qty: 0 0RF
levothyroxine 50 MCG tablet
50 mcg PO DAILY Qty: 0 0RF
Changed
cholecalciferol (vitamin D3) 1,000 UNITS tablet
1,000 unit PO DAILY Qty: 0 0RF
Discharge Orders:
Discharge Patient (As Directed); Ordered 06/06/25
Ordered By: Fan Espinoza
Discharge Date and Time
Discharge Date/Time: 06/06/25 16:14
Print Language: SPANISH
== END 2025-06-06 16:14 | DRG 194 ==
LOC: 4 WEST ACU 14:48
PROVIDERS: Emergency Medicine; Registered Nurse; ADMITTING PHYSICIAN Internal Medicine; ATTENDING PHYSICIAN Internal Medicine; EMERGENCY PHYSICIAN Emergency Medicine; FAMILY PHYSICIAN Family Medicine
DX: J10.1 Influenza due to other identified influenza virus with other respiratory manifestations (principal); E87.1 Hypo-osmolality and hyponatremia; I25.10 Atherosclerotic heart disease of native coronary artery without angina pectoris; Z85.46 Personal history of malignant neoplasm of prostate; I10 Essential (primary) hypertension; E78.00 Pure hypercholesterolemia, unspecified; E03.9 Hypothyroidism, unspecified; Z87.891 Personal history of nicotine dependence; Z95.1 Presence of aortocoronary bypass graft; Z88.0 Allergy status to penicillin; Z79.82 Long term (current) use of aspirin; Z79.890 Hormone replacement therapy; D64.9 Anemia, unspecified; E86.0 Dehydration; G62.9 Polyneuropathy, unspecified; I25.2 Old myocardial infarction
CPT/HCPCS: 71046; 80048; 80053; 81003; 81015; 83605; 83930; 83935; 84300; 85025; 85027; 87040; 87070; 87205; 87449; 87502; 87807; 87811; 97110; 97162; 99285

== ENCOUNTER → 2025-06-13 10:08 | Outpatient (REF) | payer MEDICARE, SELFPAY ==
[2025-06-13 11:55] LABS: Blood Urea Nitrogen 15 mg/dl (9-20); Calcium 9.2 mg/dl (8.4-10.2); Carbon Dioxide 28 mmol/L (22-30); Chloride 104 mmol/L (98-107); Glucose 85 mg/dl (70-99); Potassium 5.1 mmol/L (3.5-5.1); Sodium 135 mmol/L (135-145); eGFR > 60.00
== END ==
LOC: OLABPV 10:08
PROVIDERS: ATTENDING PHYSICIAN Family Medicine
DX: E87.1 Hypo-osmolality and hyponatremia (principal)
CPT/HCPCS: 36415; 80048